=== PATIENT | male | born 1970 | race Caucasian/White ===

== ENCOUNTER → 2018-10-06 | Outpatient (CLI) | payer BC ==
--- NOTE | 2018-10-06 16:20 | CT ---
EXAMINATION TYPE: CT sinus wo con DATE OF EXAM: 10/06/2018 COMPARISON: None HISTORY: 48-year-old male Facial pain and pressure. History of sinus surgery CT DLP: 603 mGycm Automated exposure control for dose reduction was used. TECHNIQUE: Noncontrast axial views of the paranasal sinuses were obtained. Coronal reconstructions pe rformed. FINDINGS: PARANASAL SINUSES: There is moderate to severe pansinus mucosal thickening. Some frothy fluid seen within the right maxillary sinus. Prior bilateral medial maxillary antrectomies. Reactive ary- osteogenesis is not seen. There is no destruction of the osseous menendez of the paranasal sinuses. THE NASAL CAVITY: Leftward nasal septal deviation. The imaged brain and orbits are normal in appearance. Visualized mastoid air cells and middle ear cavities are well pneumatized. Incidentally, there is an impacted and angulated right maxillary molar, horizontally positioned, the crown pointing laterally. Reformatted images confirm above findings. IMPRESSION: 1. Severe chronic pansinus disease. 2. Some frothy fluid in the right maxillary sinus likely reflects a concurrent acute sinusitis. 3. Prior FESS with maxillary antrectomies. 4. Leftward nasal septal deviation. 5. Incidental impacted and angulated right maxillary molar
== END | disposition home or self-care (01) ==
LOC: RADCTMAIN 15:32
PROVIDERS: ATTEND Family Medicine
DX: J32.4 Chronic pansinusitis (principal); J34.2 Deviated nasal septum
CPT/HCPCS: 70486

== ENCOUNTER → 2018-11-04 | Outpatient (CLI) | payer BC ==
--- NOTE | 2018-11-04 12:57 | MR ---
EXAMINATION TYPE: MR neck wo/w con DATE OF EXAM: 11/04/2018 COMPARISON: Sinus CT October 06, 2018 HISTORY: localized enlarged lymph nodes, Lump on posterior neck CONTRAST: Standard multiplanar, multisequence MRI departmental protocol utilizing 7.5 mL intravenous Gadavist g adolinium contrast. FINDINGS: A vitamin E marker is placed at level of palpable abnormality left posterior neck at roughl y superior C3 level. In the deep subcutaneous fat just superficial to the deeper neck muscles there i s oval 1.6 x 1.1 cm lesion isodense to fat without enhancement with fat saturation system with small subcutaneous lipoma axial image 20. No definitive greater than 1 cm neck adenopathy is present bilaterally. There are some scattered subc entimeter lymph nodes in submandibular level in the bilateral neck. Submandibular and parotid glands are felt within normal limits. There are a few mucous retention cyst s or polyps in the visualized portion of the bilateral maxillary sinuses. There is artifact from cavi tary filling right mandibular region noted. Visualized airway is patent. Visualized osseous structure s are intact. IMPRESSION: There is 1.6 cm deep subcutaneous lipoma corresponding to palpable lesion posterior left neck.
== END | disposition home or self-care (01) ==
LOC: RADMRIMAIN 11:50
PROVIDERS: ATTEND Family Medicine
DX: D17.0 Benign lipomatous neoplasm of skin and subcutaneous tissue of head, face and neck (principal)
CPT/HCPCS: 70543; A9585

== ENCOUNTER 2021-08-22 23:03 | Emergency (ER) | payer BC ==
[2021-08-22 23:09] VITALS: TEMP 98.1
[2021-08-23 00:25] LABS: Amphetamine Screen,Urine Not Detected (NotDetected); Barbiturate Screen,Urine Not Detected (NotDetected); Benzodiazepines Screen,Urine Not Detected (NotDetected); Cocaine Screen,Urine Not Detected (NotDetected); Methadone Screen, Urine Not Detected (NotDetected); Opiate Screen,Urine Not Detected (NotDetected); Oxycodone Screen, Urine Not Detected (NotDetected); Phencyclidine Screen,Urine Not Detected (NotDetected); Tricyclic Antidepressant,Urine Not Detected (NotDetected); Urn Cannabinoid Scrn Not Detected (NotDetected)
--- NOTE | 2021-08-23 00:39 | ED ---
Psych HPI - General Chief Complaint: Psychiatric Symptoms Stated Complaint: Mental Health Time Seen by Provider: 08/22/21 23:26 Source: patient Mode of arrival: ambulatory - History of Present Illness Initial Comments: This patient is a 51-year-old man who is brought here to have psychiatric evaluation. The patient's had phoned [phone] after the patient reportedly has made statements indicating suicidal ideation. The patient states that they are going through what may be the end of their relationship and that he is dealing with a lot of emotion at the moment. He states that he had written a poem that may have been taken as showing suicidal ideation but that was not his intent. Complaint: other -: days(s) Associated Psychiatric Symptoms: none Improves With: none Worsens With: none - Related Data Allergies Allergy/AdvReac Type Severity Reaction Status Date / Time Penicillins Allergy Anaphylaxis Verified 08/22/21 23:05 Review of Systems ROS Statement: Those systems with pertinent positive or pertinent negative responses have been documented in the HPI. ROS Other: All systems not noted in ROS Statement are negative. Constitutional: Denies: fever Respiratory: Denies: cough, dyspnea Cardiovascular: Denies: chest pain, palpitations Gastrointestinal: Denies: abdominal pain, vomiting Genitourinary: Denies: dysuria Musculoskeletal: Denies: back pain Neurological: Denies: headache, weakness Psychiatric: Reports: as per HPI Past Medical History Past Medical History: No Reported History History of Any Multi-Drug Resistant Organisms: None Reported Past Surgical History: Orthopedic Surgery Past Psychological History: No Psychological Hx Reported Smoking Status: Current every day smoker Past Alcohol Use History: Rare Past Drug Use History: None Reported General Exam Limitations: no limitations General appearance: alert, in no apparent distress Head exam: Present: atraumatic, normocephalic Eye exam: Present: normal appearance. Absent: scleral icterus, conjunctival injection Neck exam: Present: normal inspection Respiratory exam: Present: normal lung sounds bilaterally. Absent: respiratory distress, wheezes, rales, rhonchi, stridor Cardiovascular Exam: Present: regular rate, normal rhythm, normal heart sounds. Absent: systolic murmur, diastolic murmur, rubs, gallop GI/Abdominal exam: Present: soft. Absent: distended, tenderness, guarding, rebound, rigid, mass Extremities exam: Present: normal inspection, normal capillary refill. Absent: pedal edema, calf tenderness Back exam: Present: normal inspection. Absent: CVA tenderness (R), CVA tenderness (L) Neurological exam: Present: alert Psychiatric exam: Present: other. Absent: agitated, anxious, flat affect, homicidal ideation Skin exam: Present: warm, dry, intact, normal color. Absent: rash Course Vital Signs 08/22/21 23:05 Temperature 98.1 F Pulse Rate 112 H Respiratory 16 Rate Blood Pressure 158/92 O2 Sat by Pulse 98 Oximetry Medical Decision Making - Lab Data Lab Results 08/22/21 Range/Units 23:51 Urine Opiates Screen Not Detected (NotDetected) Ur Oxycodone Screen Not Detected (NotDetected) Urine Methadone Screen Not Detected (NotDetected) Ur Propoxyphene Screen Not Detected (NotDetected) Ur Barbiturates Screen Not Detected (NotDetected) U Tricyclic Antidepress Not Detected (NotDetected) Ur Phencyclidine Scrn Not Detected (NotDetected) Ur Amphetamines Screen Not Detected (NotDetected) U Methamphetamines Scrn Not Detected (NotDetected) U Benzodiazepines Scrn Not Detected (NotDetected) Urine Cocaine Screen Not Detected (NotDetected) U Marijuana (THC) Screen Not Detected (NotDetected) Disposition Clinical Impression: Reaction, adjustment Disposition: HOME SELF-CARE Condition: Good Instructions (If sedation given, give patient instructions): Mood Disorders (ED) Is patient prescribed a controlled substance at d/c from ED?: No Referrals: Levi Vidal MD [Primary Care Provider] - 1-2 days
[2021-08-23] MEDS ORDERED: NICOTINE 21MG/24HR PATCH TRANSDERM STA (02:56)
[2021-08-23 03:54] VITALS: BP 145/98; PULSE 70; RESP 20
== END 2021-08-23 03:54 | disposition home or self-care (01) ==
LOC: EC 23:03
DX: F43.20 Adjustment disorder, unspecified (principal); F17.200 Nicotine dependence, unspecified, uncomplicated
CPT/HCPCS: 80306; 82075; 99285